=== PATIENT | female | born 1935 | race Caucasian/White ===

== ENCOUNTER 2016-05-12 13:51 | Inpatient (IN) | payer MEDICARE, OTHER ==
[2016-05-12] MEDS ORDERED: Ondansetron 4 MG Tab.DIS PO PRN (15:17)
[2016-05-12] MEDS ORDERED: Hydrocortisone 2.5% Crm 30 GM Tube TOP PRN (15:23)
[2016-05-12] MEDS ORDERED: Magnesium Hydroxide 400 MG/5 ML Susp 30 ML Cup PO PRN (15:33)
[2016-05-12] MEDS ORDERED: Lactulose Soln 10 GM/15 ML 30 ML UD Cup PO PRN (15:34)
[2016-05-12] MEDS: oxyCODONE 5 MG Tab PO PRN ×2 (15:59→20:18)
[2016-05-12] MEDS: Insulin Aspart 100 Units/ML 3 ML Pen SUBCUT SCH (17:14)
[2016-05-12] MEDS: Gabapentin 300 MG Cap PO SCH ×2 (17:15→20:17)
[2016-05-12] MEDS: Ciprofloxacin 500 MG Tab PO SCH (20:17)
[2016-05-12] MEDS: Heparin Sodium 5,000 Units/ML Vial SUBCUT SCH (21:11)
--- NOTE | 2016-05-12 22:22 | HP ---
CHIEF COMPLAINT: Back pain. HISTORY OF PRESENTING ILLNESS: Ms. Lian Barakat is an 80-year-old female with history of diabetes mellitus, hypertension, and gastroesophageal reflux disease. The patient also has history of chronic back pain. Her back pain got worse and she was evaluated with MRI which showed disk bulge at L3-L4 with associated spinal stenosis. She underwent surgery on 05/06/2016. Subsequently she was transferred to [facility] for continuation of physical therapy. The surgery was performed by Dr. Hearn. The patient at this time indicated she does have low back pain. Intensity is 5 on a scale of 0-10. No radiation. It is dull in nature. Analgesic does help. No nausea and no vomiting. No fever. No chills. The patient was found to have a urinary tract infection based on urinalysis performed at [facility]. REVIEW OF SYSTEMS: A 10-point review of system performed, no other pertinent findings except as noted above. PAST MEDICAL HISTORY: Dyslipidemia, diabetes mellitus, hypertension, gastroesophageal reflux disease. FAMILY HISTORY: Reviewed. Positive for breast cancer, diabetes, and stroke. SOCIAL HISTORY: Patient is . No tobacco use. CURRENT MEDICATIONS: Reviewed. She was on: 1. Glucophage. 2. Hydrochlorothiazide. 3. Prilosec. 4. Neurontin. 5. Atenolol. 6. Vitamin C. OBJECTIVE: General: The patient is alert and oriented to place, time, and person. Head: Atraumatic and normocephalic. Ear, Nose, and Throat: Unremarkable. Neck: Supple. Chest: Clear to auscultation. CVS: Regular rate and rhythm. No S3 or S4. Abdomen: Soft, nontender. Extremities: No pedal edema. No finger clubbing. Skin: No rash. Neuro: Symmetric strength. Vital Signs: Reviewed. LABORATORY DATA: Urinalysis suggested about 30 white cells per high-power field. MRI reviewed disk bulge at L3-L4 with spinal stenosis. ASSESSMENT: 1. Status post spinal surgery for L3-L4 disk bulge with associated spinal stenosis. 2. Spinal stenosis documented on MRI. Patient underwent surgery. 3. Diabetes mellitus type 2. The patient is on oral hypoglycemic agent. 4. Hypertension. Intermittent elevated. The patient is on oral antihypertensive as well. 5. Dyslipidemia, on medication. 6. Gastroesophageal reflux disease. Has been on proton pump inhibitor p.o. 7. Urinary tract infection. Urinalysis is suggestive. PLAN: 1. Admit patient to swing bed. 2. Consult physical therapy. 3. Monitor blood sugar before meals and at bedtime. 4. Start patient on atenolol. 5. Start Prilosec. 6. Start Glucophage. 7. Deep venous thrombosis prophylaxis with subcutaneous heparin. 8. Encourage increased activity. 9. Start the patient on oral ciprofloxacin. 10.Await results of urine cultures. Chart reviewed. Discussed with the nursing staff. [facility] /[id number]
[2016-05-13] MEDS: oxyCODONE 5 MG Tab PO PRN ×5 (00:57→19:52)
[2016-05-13] MEDS: Omeprazole 20 MG Cap.CR PO SCH (05:59)
[2016-05-13] MEDS: Heparin Sodium 5,000 Units/ML Vial SUBCUT SCH ×3 (05:59→21:54)
[2016-05-13] MEDS: Insulin Aspart 100 Units/ML 3 ML Pen SUBCUT SCH ×3 (08:03→17:15)
[2016-05-13] MEDS: Aspirin 81 MG Tab.EC PO SCH (08:04)
[2016-05-13] MEDS: Ciprofloxacin 500 MG Tab PO SCH ×2 (08:04→20:40)
[2016-05-13] MEDS: Acetaminophen 325 MG Tab PO PRN (08:05)
[2016-05-13] MEDS: Gabapentin 300 MG Cap PO SCH ×4 (08:05→20:41)
[2016-05-13] MEDS: Ascorbic Acid 500 MG Tab PO SCH (08:05)
[2016-05-13] MEDS: Hydrochlorothiazide 25 MG Tab PO SCH (08:06)
[2016-05-13] MEDS: Atenolol 50 MG Tab PO SCH (08:10)
[2016-05-13] MEDS: METFORMIN HCL 500 MG PO SCH (08:12)
[2016-05-13] MEDS: Loratadine 10 MG Tab PO SCH (08:15)
[2016-05-14] MEDS: oxyCODONE 5 MG Tab PO PRN ×6 (00:35→23:55)
[2016-05-14] MEDS: Heparin Sodium 5,000 Units/ML Vial SUBCUT SCH ×3 (05:32→22:21)
[2016-05-14] MEDS: Omeprazole 20 MG Cap.CR PO SCH (05:32)
[2016-05-14] MEDS: Insulin Aspart 100 Units/ML 3 ML Pen SUBCUT SCH ×3 (09:19→17:51)
[2016-05-14] MEDS: Loratadine 10 MG Tab PO SCH (09:21)
[2016-05-14] MEDS: Atenolol 50 MG Tab PO SCH (09:21)
[2016-05-14] MEDS: Gabapentin 300 MG Cap PO SCH ×4 (09:25→20:47)
[2016-05-14] MEDS: Hydrochlorothiazide 25 MG Tab PO SCH (09:25)
[2016-05-14] MEDS: Ciprofloxacin 500 MG Tab PO SCH ×2 (09:25→20:47)
[2016-05-14] MEDS: Aspirin 81 MG Tab.EC PO SCH (09:25)
[2016-05-14] MEDS: Ascorbic Acid 500 MG Tab PO SCH (09:25)
[2016-05-14] MEDS: METFORMIN HCL 500 MG PO SCH (09:27)
[2016-05-15] MEDS: oxyCODONE 5 MG Tab PO PRN ×4 (04:04→19:56)
[2016-05-15] MEDS: Heparin Sodium 5,000 Units/ML Vial SUBCUT SCH ×3 (05:45→22:06)
[2016-05-15] MEDS: Omeprazole 20 MG Cap.CR PO SCH (05:45)
[2016-05-15] MEDS: Insulin Aspart 100 Units/ML 3 ML Pen SUBCUT SCH ×3 (09:52→17:23)
[2016-05-15] MEDS: Gabapentin 300 MG Cap PO SCH ×4 (10:06→20:30)
[2016-05-15] MEDS: Ciprofloxacin 500 MG Tab PO SCH ×2 (10:07→20:30)
[2016-05-15] MEDS: Hydrochlorothiazide 25 MG Tab PO SCH (10:08)
[2016-05-15] MEDS: Atenolol 50 MG Tab PO SCH (10:08)
[2016-05-15] MEDS: Aspirin 81 MG Tab.EC PO SCH (10:08)
[2016-05-15] MEDS: Ascorbic Acid 500 MG Tab PO SCH (10:08)
[2016-05-15] MEDS: METFORMIN HCL 500 MG PO SCH (10:15)
[2016-05-15] MEDS: Loratadine 10 MG Tab PO SCH (10:16)
[2016-05-16] MEDS: oxyCODONE 5 MG Tab PO PRN ×5 (01:29→20:09)
[2016-05-16] MEDS: Acetaminophen 325 MG Tab PO PRN (03:18)
[2016-05-16] MEDS: Omeprazole 20 MG Cap.CR PO SCH (05:32)
[2016-05-16] MEDS: Heparin Sodium 5,000 Units/ML Vial SUBCUT SCH ×3 (05:32→21:20)
[2016-05-16] MEDS: Insulin Aspart 100 Units/ML 3 ML Pen SUBCUT SCH ×3 (08:03→16:57)
[2016-05-16] MEDS: Ciprofloxacin 500 MG Tab PO SCH ×2 (08:46→21:21)
[2016-05-16] MEDS: Gabapentin 300 MG Cap PO SCH ×4 (08:47→21:22)
[2016-05-16] MEDS: Aspirin 81 MG Tab.EC PO SCH (08:47)
[2016-05-16] MEDS: Ascorbic Acid 500 MG Tab PO SCH (08:47)
[2016-05-16] MEDS: Hydrochlorothiazide 25 MG Tab PO SCH (08:48)
[2016-05-16] MEDS: Loratadine 10 MG Tab PO SCH (08:48)
[2016-05-16] MEDS: Atenolol 50 MG Tab PO SCH (08:48)
[2016-05-16] MEDS: METFORMIN HCL 500 MG PO SCH (08:49)
[2016-05-16] MEDS: Lidocaine 5% 700 MG Patch TOP SCH (10:57)
[2016-05-17] MEDS: oxyCODONE 5 MG Tab PO PRN ×5 (00:45→20:06)
[2016-05-17] MEDS: Acetaminophen 325 MG Tab PO PRN ×3 (00:54→21:27)
[2016-05-17] MEDS: Heparin Sodium 5,000 Units/ML Vial SUBCUT SCH ×3 (05:36→21:22)
[2016-05-17] MEDS: Omeprazole 20 MG Cap.CR PO SCH (05:37)
[2016-05-17] MEDS: Insulin Aspart 100 Units/ML 3 ML Pen SUBCUT SCH ×3 (08:28→17:22)
[2016-05-17] MEDS: Ascorbic Acid 500 MG Tab PO SCH (09:34)
[2016-05-17] MEDS: Loratadine 10 MG Tab PO SCH (09:34)
[2016-05-17] MEDS: Gabapentin 300 MG Cap PO SCH ×4 (09:34→21:20)
[2016-05-17] MEDS: Aspirin 81 MG Tab.EC PO SCH (09:35)
[2016-05-17] MEDS: Hydrochlorothiazide 25 MG Tab PO SCH (09:35)
[2016-05-17] MEDS: Atenolol 50 MG Tab PO SCH (09:35)
[2016-05-17] MEDS: Ciprofloxacin 500 MG Tab PO SCH ×2 (09:35→21:20)
[2016-05-17] MEDS: METFORMIN HCL 500 MG PO SCH (09:44)
[2016-05-17] MEDS: Lidocaine 5% 700 MG Patch TOP SCH (10:50)
[2016-05-18] MEDS: oxyCODONE 5 MG Tab PO PRN ×6 (00:20→21:02)
[2016-05-18] MEDS: Acetaminophen 325 MG Tab PO PRN ×4 (02:07→19:48)
[2016-05-18] MEDS: Heparin Sodium 5,000 Units/ML Vial SUBCUT SCH ×3 (05:42→21:48)
[2016-05-18] MEDS: Omeprazole 20 MG Cap.CR PO SCH (05:42)
[2016-05-18] MEDS: Insulin Aspart 100 Units/ML 3 ML Pen SUBCUT SCH ×3 (08:18→17:16)
[2016-05-18] MEDS: Ascorbic Acid 500 MG Tab PO SCH (08:19)
[2016-05-18] MEDS: Aspirin 81 MG Tab.EC PO SCH (08:19)
[2016-05-18] MEDS: Hydrochlorothiazide 25 MG Tab PO SCH (08:19)
[2016-05-18] MEDS: Ciprofloxacin 500 MG Tab PO SCH (08:19)
[2016-05-18] MEDS: Loratadine 10 MG Tab PO SCH (08:19)
[2016-05-18] MEDS: Atenolol 50 MG Tab PO SCH (08:20)
[2016-05-18] MEDS: Lidocaine 5% 700 MG Patch TOP SCH (08:21)
[2016-05-18] MEDS: Gabapentin 300 MG Cap PO SCH ×4 (08:22→21:04)
[2016-05-18] MEDS: METFORMIN HCL 500 MG PO SCH (08:25)
--- NOTE | 2016-05-18 10:52 | PN ---
DATE: 05/18/2016 SUBJECTIVE: Ms. Olivares is an 80-year-old female, who underwent spinal surgery in [place]. She is in [facility] bed for physical and occupational therapy. Today, the patient indicated that she still has low back pain. This happens mostly at night. The oxycodone does help. She thinks that her bed is the problem. No nausea. No vomiting. Able to get up with physical therapy. PAST MEDICAL HISTORY: 1. Dyslipidemia. 2. Diabetes mellitus. 3. Hypertension. REVIEW OF SYSTEMS: Constitutional, cardiac, respiratory, gastrointestinal, genitourinary system were reviewed. No other pertinent findings except as noted above. OBJECTIVE: General: The patient is alert, oriented to place, time, and person. Head: Atraumatic and normocephalic. Ear, Nose, and throat: Unremarkable. Chest: Clear to auscultation. Abdomen: Soft, nontender. Extremities: No pedal edema. No finger clubbing. Skin: No rash. Neuro: Moves all extremities. ASSESSMENT: 1. Status post spinal surgery at L3-L4 vertebra. The patient had disc bulge at this level with associated spinal stenosis. 2. Diabetes mellitus, reasonable control. She is on oral hypoglycemic agent. 3. Hypertension. Her blood pressures have been mostly within acceptable limits. Diastolic tends to be on the low side. 4. Dyslipidemia, on medication. 5. Gastroesophageal reflux disease. The patient is on proton-pump inhibitor. 6. Probable urinary tract infection. Urinalysis is suggestive. PLAN: 1. Discontinue ciprofloxacin. The patient has had antibiotics for 6 days for urinary tract infection. 2. Monitor vital signs. 3. I will keep the patient on both atenolol and hydrochlorothiazide, but if diastolic continues to be low, get rid of one of them. For now, monitor closely. 4. Continue physical and occupational therapy. [facility] /[id number]
[2016-05-19] MEDS: oxyCODONE 5 MG Tab PO PRN ×6 (01:19→23:51)
[2016-05-19] MEDS: Acetaminophen 325 MG Tab PO PRN ×3 (03:22→21:47)
[2016-05-19] MEDS: Omeprazole 20 MG Cap.CR PO SCH (05:41)
[2016-05-19] MEDS: Heparin Sodium 5,000 Units/ML Vial SUBCUT SCH ×3 (05:43→21:52)
[2016-05-19] MEDS: Insulin Aspart 100 Units/ML 3 ML Pen SUBCUT SCH ×3 (08:36→17:45)
[2016-05-19] MEDS: Aspirin 81 MG Tab.EC PO SCH (08:38)
[2016-05-19] MEDS: Hydrochlorothiazide 25 MG Tab PO SCH (08:39)
[2016-05-19] MEDS: Gabapentin 300 MG Cap PO SCH ×4 (08:39→21:46)
[2016-05-19] MEDS: Ascorbic Acid 500 MG Tab PO SCH (08:39)
[2016-05-19] MEDS: Lidocaine 5% 700 MG Patch TOP SCH (08:39)
[2016-05-19] MEDS: Loratadine 10 MG Tab PO SCH (08:39)
[2016-05-19] MEDS: METFORMIN HCL 500 MG PO SCH (08:45)
[2016-05-19] MEDS: Atenolol 50 MG Tab PO SCH (10:13)
--- NOTE | 2016-05-19 20:10 | PN ---
DATE: 05/19/2016 Ms. Barakat is an 80-year-old lady, who is currently in swing bed. Approximately 2 weeks ago she had spinal surgery at [facility] for spinal stenosis. She is doing well. She voices no concerns or complaints. Denies any chest pain or shortness of breath. No abdominal pain. She is sleeping well, eating well, moving her bowels. She denied any calf pain. She did question whether the carline in her incision could be removed today. Review of her clinical data shows that she is taking in adequate fluids. She is voiding and has moving her bowels. She is tolerating her meals. Vital Signs: Stable. She has been afebrile. HEENT: Unremarkable. Chest: Clear. Heart: Regular. Abdomen: Benign. Extremities: Showed the calves to be soft and nontender. There are palpable peripheral pulses. Back: She has a well-healed midline scar overlying the lumbar spine. Nursing staff removed 28 carline from the incision and the area was cleaned with normal saline and covered with a dry dressing. No other changes were made in her care today. [facility] /[id number] [place]
[2016-05-20] MEDS: oxyCODONE 5 MG Tab PO PRN ×5 (03:43→21:53)
[2016-05-20] MEDS: Omeprazole 20 MG Cap.CR PO SCH (05:41)
[2016-05-20] MEDS: Heparin Sodium 5,000 Units/ML Vial SUBCUT SCH ×3 (05:43→21:51)
[2016-05-20] MEDS: Insulin Aspart 100 Units/ML 3 ML Pen SUBCUT SCH ×3 (08:11→16:58)
[2016-05-20] MEDS: Ascorbic Acid 500 MG Tab PO SCH (08:12)
[2016-05-20] MEDS: Loratadine 10 MG Tab PO SCH (08:13)
[2016-05-20] MEDS: Atenolol 50 MG Tab PO SCH (08:13)
[2016-05-20] MEDS: Hydrochlorothiazide 25 MG Tab PO SCH (08:13)
[2016-05-20] MEDS: Aspirin 81 MG Tab.EC PO SCH (08:14)
[2016-05-20] MEDS: Gabapentin 300 MG Cap PO SCH ×4 (08:14→21:51)
[2016-05-20] MEDS: Lidocaine 5% 700 MG Patch TOP SCH (08:17)
[2016-05-20] MEDS: METFORMIN HCL 500 MG PO SCH (08:19)
[2016-05-20] MEDS: Acetaminophen 325 MG Tab PO PRN ×3 (10:36→23:07)
[2016-05-21] MEDS: oxyCODONE 5 MG Tab PO PRN ×6 (02:12→22:46)
[2016-05-21] MEDS: Acetaminophen 325 MG Tab PO PRN ×5 (04:25→21:36)
[2016-05-21] MEDS: Omeprazole 20 MG Cap.CR PO SCH (06:55)
[2016-05-21] MEDS: Heparin Sodium 5,000 Units/ML Vial SUBCUT SCH ×3 (06:56→21:35)
[2016-05-21] MEDS: Insulin Aspart 100 Units/ML 3 ML Pen SUBCUT SCH ×3 (08:05→17:04)
[2016-05-21] MEDS: Aspirin 81 MG Tab.EC PO SCH (08:46)
[2016-05-21] MEDS: METFORMIN HCL 500 MG PO SCH (08:46)
[2016-05-21] MEDS: Hydrochlorothiazide 25 MG Tab PO SCH (08:47)
[2016-05-21] MEDS: Atenolol 50 MG Tab PO SCH (08:47)
[2016-05-21] MEDS: Loratadine 10 MG Tab PO SCH (08:47)
[2016-05-21] MEDS: Ascorbic Acid 500 MG Tab PO SCH (08:48)
[2016-05-21] MEDS: Gabapentin 300 MG Cap PO SCH ×4 (08:48→21:36)
[2016-05-21] MEDS: Lidocaine 5% 700 MG Patch TOP SCH (08:50)
[2016-05-22] MEDS: Acetaminophen 325 MG Tab PO PRN ×6 (01:51→23:59)
[2016-05-22] MEDS: oxyCODONE 5 MG Tab PO PRN ×5 (04:44→21:03)
[2016-05-22] MEDS: Omeprazole 20 MG Cap.CR PO SCH (05:10)
[2016-05-22] MEDS: Heparin Sodium 5,000 Units/ML Vial SUBCUT SCH ×3 (05:10→21:09)
[2016-05-22] MEDS: Insulin Aspart 100 Units/ML 3 ML Pen SUBCUT SCH ×3 (08:02→17:11)
[2016-05-22] MEDS: Ascorbic Acid 500 MG Tab PO SCH (08:50)
[2016-05-22] MEDS: Atenolol 50 MG Tab PO SCH (08:51)
[2016-05-22] MEDS: METFORMIN HCL 500 MG PO SCH (08:51)
[2016-05-22] MEDS: Gabapentin 300 MG Cap PO SCH ×4 (08:52→20:12)
[2016-05-22] MEDS: Hydrochlorothiazide 25 MG Tab PO SCH (08:52)
[2016-05-22] MEDS: Loratadine 10 MG Tab PO SCH (08:52)
[2016-05-22] MEDS: Lidocaine 5% 700 MG Patch TOP SCH (08:53)
[2016-05-22] MEDS: Aspirin 81 MG Tab.EC PO SCH (08:53)
[2016-05-23] MEDS: oxyCODONE 5 MG Tab PO PRN ×5 (01:25→19:31)
[2016-05-23] MEDS: Acetaminophen 325 MG Tab PO PRN ×4 (04:13→22:27)
[2016-05-23] MEDS: Omeprazole 20 MG Cap.CR PO SCH (05:27)
[2016-05-23] MEDS: Heparin Sodium 5,000 Units/ML Vial SUBCUT SCH ×3 (05:28→21:37)
[2016-05-23] MEDS: Insulin Aspart 100 Units/ML 3 ML Pen SUBCUT SCH ×3 (07:48→17:15)
[2016-05-23] MEDS: METFORMIN HCL 500 MG PO SCH (08:47)
[2016-05-23] MEDS: Loratadine 10 MG Tab PO SCH (08:48)
[2016-05-23] MEDS: Gabapentin 300 MG Cap PO SCH ×4 (08:48→21:39)
[2016-05-23] MEDS: Ascorbic Acid 500 MG Tab PO SCH (08:48)
[2016-05-23] MEDS: Hydrochlorothiazide 25 MG Tab PO SCH (08:48)
[2016-05-23] MEDS: Aspirin 81 MG Tab.EC PO SCH (08:49)
[2016-05-23] MEDS: Atenolol 50 MG Tab PO SCH (08:49)
[2016-05-23] MEDS: Lidocaine 5% 700 MG Patch TOP SCH (11:28)
[2016-05-24] MEDS: oxyCODONE 5 MG Tab PO PRN ×5 (00:34→20:18)
[2016-05-24] MEDS: Heparin Sodium 5,000 Units/ML Vial SUBCUT SCH ×3 (05:55→21:10)
[2016-05-24] MEDS: Omeprazole 20 MG Cap.CR PO SCH (05:56)
[2016-05-24] MEDS: Insulin Aspart 100 Units/ML 3 ML Pen SUBCUT SCH ×3 (08:07→18:22)
[2016-05-24] MEDS: Gabapentin 300 MG Cap PO SCH ×4 (08:57→20:18)
[2016-05-24] MEDS: Atenolol 50 MG Tab PO SCH (08:57)
[2016-05-24] MEDS: Hydrochlorothiazide 25 MG Tab PO SCH (08:57)
[2016-05-24] MEDS: Ascorbic Acid 500 MG Tab PO SCH (08:57)
[2016-05-24] MEDS: Aspirin 81 MG Tab.EC PO SCH (08:58)
[2016-05-24] MEDS: METFORMIN HCL 500 MG PO SCH (08:58)
[2016-05-24] MEDS: Loratadine 10 MG Tab PO SCH (08:58)
[2016-05-24] MEDS: Lidocaine 5% 700 MG Patch TOP SCH (08:58)
[2016-05-24] MEDS: Acetaminophen 325 MG Tab PO PRN (09:23)
[2016-05-25] MEDS: oxyCODONE 5 MG Tab PO PRN ×4 (01:56→20:36)
[2016-05-25] MEDS: Omeprazole 20 MG Cap.CR PO SCH (05:18)
[2016-05-25] MEDS: Heparin Sodium 5,000 Units/ML Vial SUBCUT SCH ×3 (05:19→21:58)
[2016-05-25] MEDS: Loratadine 10 MG Tab PO SCH (08:19)
[2016-05-25] MEDS: Gabapentin 300 MG Cap PO SCH ×4 (08:19→20:35)
[2016-05-25] MEDS: Hydrochlorothiazide 25 MG Tab PO SCH (08:19)
[2016-05-25] MEDS: Lidocaine 5% 700 MG Patch TOP SCH (08:19)
[2016-05-25] MEDS: Atenolol 50 MG Tab PO SCH (08:20)
[2016-05-25] MEDS: Ascorbic Acid 500 MG Tab PO SCH (08:20)
[2016-05-25] MEDS: Aspirin 81 MG Tab.EC PO SCH (08:21)
[2016-05-25] MEDS: METFORMIN HCL 500 MG PO SCH (08:21)
[2016-05-25] MEDS: Insulin Aspart 100 Units/ML 3 ML Pen SUBCUT SCH ×3 (08:21→17:06)
[2016-05-26] MEDS: oxyCODONE 5 MG Tab PO PRN ×4 (02:08→19:37)
[2016-05-26] MEDS: Heparin Sodium 5,000 Units/ML Vial SUBCUT SCH ×3 (05:50→22:26)
[2016-05-26] MEDS: Omeprazole 20 MG Cap.CR PO SCH (05:51)
[2016-05-26] MEDS: Ascorbic Acid 500 MG Tab PO SCH (08:50)
[2016-05-26] MEDS: Gabapentin 300 MG Cap PO SCH ×4 (08:51→20:58)
[2016-05-26] MEDS: Loratadine 10 MG Tab PO SCH (08:51)
[2016-05-26] MEDS: Aspirin 81 MG Tab.EC PO SCH (08:53)
[2016-05-26] MEDS: Hydrochlorothiazide 25 MG Tab PO SCH (08:54)
[2016-05-26] MEDS: METFORMIN HCL 500 MG PO SCH (08:55)
[2016-05-26] MEDS: Insulin Aspart 100 Units/ML 3 ML Pen SUBCUT SCH ×3 (08:59→17:29)
[2016-05-26] MEDS: Atenolol 50 MG Tab PO SCH (09:11)
[2016-05-26] MEDS: Acetaminophen 325 MG Tab PO PRN ×2 (09:17→14:30)
[2016-05-26] MEDS: Lidocaine 5% 700 MG Patch TOP SCH (10:42)
[2016-05-27] MEDS: Acetaminophen 325 MG Tab PO PRN ×2 (01:47→07:55)
[2016-05-27] MEDS: oxyCODONE 5 MG Tab PO PRN ×2 (04:18→10:56)
[2016-05-27] MEDS: Heparin Sodium 5,000 Units/ML Vial SUBCUT SCH ×2 (05:17→14:54)
[2016-05-27] MEDS: Omeprazole 20 MG Cap.CR PO SCH (06:14)
[2016-05-27] MEDS: Insulin Aspart 100 Units/ML 3 ML Pen SUBCUT SCH ×2 (08:09→12:18)
--- NOTE | 2016-05-27 10:17 | PCM.DCSUM1 ---
Discharge Summary - Hospital Course Free Text/Narrative:: discharge diagnoses: status post spinal surgery for L3-L4 disc bulge with spinal stenosis Spinal stenosis, status post surgical repair Diabetes mellitus type 2 in obese patient Essential hypertension Dyslipidemia GERD urinary tract infection, resolved Hospital course: 80-year-old female presented for physical therapy to swing bed after having spinal surgery on 05/06/16. Patient has been participating well with physical therapy and making progress. She had an uneventful stay. She was suspected to have urinary tract infection which was treated with ciprofloxacin. Her pain was controlled with oxycodone as needed. Patient denies fever, chills, nausea, vomiting, chest pain, shortness breath, lower extremities weakness/numbness/ tingling, difficulty urinating or defecating, or any other symptoms. her blood glucose was controlled and she required minimal insulin sporadically. She was discharged to followup with her primary care provider and neurosurgeon in 1-2 weeks. review of system: 10 point review of systems is otherwise negative except as mentioned above - Discharge Data Discharge Date: 05/27/16 Discharge Disposition: Home, Self-Care 01 Condition: Fair - Patient Summary/Data Consults: Consultations 05/12/16 15:17 OT Evaluation and Treatment [CONS] Routine PT Evaluation and Treatment [CONS] Routine - Patient Instructions Diet: Diabetic Diet Showering/Bathing: June Shower Wound/Incision Care: Keep Operative Site/Wound Site Clean and Dry Notify Provider of: Fever, Drainage - Discharge Plan Prescriptions/Med Rec: Acetaminophen with Codeine [Tylenol with Codeine #3 Tablet] 1 - 2 each PO Q6H PRN #45 tablet PRN Reason: Pain Home Medications: Home Meds Ascorbic Acid [C-1000] 1,000 mg PO DAILY 05/12/16 [History] Aspirin [Adult Low Dose Aspirin EC] 81 mg PO DAILY 05/12/16 [History] Atenolol 50 mg PO DAILY 05/12/16 [History] Gabapentin [Neurontin] 300 mg PO QID 05/12/16 [History] Hydrochlorothiazide 25 mg PO DAILY 05/12/16 [History] Hydrocortisone [Anusol-HC] 30 gm RC BID PRN 05/12/16 [History] Loratadine [Claritin] 10 mg PO DAILY 05/12/16 [History] Omeprazole 40 mg PO ACBREAKFAST 05/12/16 [History] metFORMIN HCl [Metformin HCl ER] 500 mg PO DAILY 05/12/16 [History] Acetaminophen with Codeine [Tylenol with Codeine #3 Tablet] 1 - 2 each PO Q6H PRN #45 tablet 05/27/16 [Rx] - Patient Data Vitals - Most Recent: Last Vital Signs Temp 36.1 C 05/27/16 07:00 Pulse 54 L 05/27/16 07:00 Resp 20 05/27/16 07:00 BP 131/56 L 05/27/16 07:00 Pulse Ox 100 05/27/16 07:00 Weight - Most Recent: 103.419 kg I&O - Last 24 hours: Intake & Output 05/26/16 05/27/16 05/27/16 22:59 06:59 14:59 Intake Total 100 Balance 100 Lab Results - Last 24 hrs: Laboratory Results - last 24 hr 05/26/16 05/26/16 05/27/16 Range/Units 11:13 17:07 07:23 POC Glucose 199 H 172 H 168 H (83-110) mg/dl Med Orders - Current: Current Medications Acetaminophen (Tylenol) 650 mg PO Q4H PRN PRN Reason: Pain (Mild 1-3)/fever Last Admin: 05/27/16 07:55 Dose: 650 mg Ascorbic Acid (Vitamin C) 1,000 mg PO DAILY [facility] Last Admin: 05/26/16 08:50 Dose: 1,000 mg Aspirin (Halfprin) 81 mg PO DAILY [facility] Last Admin: 05/26/16 08:53 Dose: 81 mg Atenolol (Tenormin) 50 mg PO DAILY [facility] Last Admin: 05/26/16 09:11 Dose: 50 mg Gabapentin (Neurontin) 300 mg PO QID [facility] Last Admin: 05/26/16 20:58 Dose: 300 mg Heparin Sodium (Porcine) (Heparin Sodium) 5,000 units SUBCUT Q8HR [facility] Last Admin: 05/27/16 05:17 Dose: Not Given Hydrochlorothiazide (Hydrochlorothiazide) 25 mg PO DAILY [facility] Last Admin: 05/26/16 08:54 Dose: 25 mg Hydrocortisone (Hydrocortisone 2.5% Crm) 0 gm TOP BID PRN PRN Reason: Hemorrhoids Insulin Aspart (Novolog) 0 unit SUBCUT TIDAC [facility] PRN Reason: Protocol Last Admin: 05/27/16 08:09 Dose: 1 units Lactulose (Cephulac) 20 gm PO BID PRN PRN Reason: constipation Lidocaine (Lidoderm 5%) 700 mg TOP Q24H [facility] Last Admin: 05/26/16 10:42 Dose: 700 mg Loratadine (Claritin) 10 mg PO DAILY [facility] Last Admin: 05/26/16 08:51 Dose: 10 mg Magnesium Hydroxide (Milk Of Magnesia) 30 ml PO Q8H PRN PRN Reason: constipation Miscellaneous Information (Remove Patch) 1 ea TRDERM BEDTIME [facility] Last Admin: 05/26/16 20:58 Dose: 1 ea Metformin Hcl [ Metformin Hcl Er] 500 MgPt Own 500 mg PO DAILY [facility] Last Admin: 05/26/16 08:55 Dose: 500 mg Omeprazole (Omeprazole) 40 mg PO ACBREAKFAST [facility] Last Admin: 05/27/16 06:14 Dose: 40 mg Ondansetron HCl (Zofran Odt) 4 mg PO Q6H PRN PRN Reason: nausea, able to take PO Oxycodone HCl (Oxycodone) 5 mg PO Q6H PRN PRN Reason: Pain (moderate 4-6) Last Admin: 05/27/16 04:18 Dose: 5 mg Senna/Docusate Sodium (Senna Plus) 2 tab PO BID [facility] Last Admin: 05/26/16 20:58 Dose: Not Given Discontinued Medications Ciprofloxacin (Ciprofloxacin Hcl) 500 mg PO BID [facility] Last Admin: 05/18/16 08:19 Dose: 500 mg Oxycodone HCl (Oxycodone) 5 mg PO Q4H PRN PRN Reason: Pain (moderate 4-6) Last Admin: 05/26/16 06:18 Dose: 5 mg - Exam General: Reports: alert, oriented, cooperative. Denies: no acute distress, mild distress, moderate distress, severe distress, sedated, lethargic, obtunded HEENT: Reports: Pupils equal, Pupils reactive, EOMI, Mucous membr. moist/pink Neck: Reports: supple, trachea midline, no JVD Lungs: Reports: Clear to auscultation, Normal respiratory effort. Denies: Decreased breath sounds, Crackles, Rales, Rhonchi, Rub, Stridor, Wheezing Cardiovascular: Reports: Regular Rate, Regular Rhythm Abdomen: Reports: bowel sounds present, soft, no tenderness, no distension. Denies: rigidity, rebound, guarding, tenderness, distension, abnormal bowel sounds, CVA tenderness, organomegaly (Female) Exam: Deferred Rectal (Female) Exam: Deferred Back Exam: Reports: normal inspection, full range of motion. Denies: CVA tenderness (L), CVA tenderness (R) Extremities: Reports: no edema, normal pulses, no tenderness/swelling, no clubbing, no cyanosis, no calf tenderness Skin: Reports: warm, dry, intact Wound/Incisions: Reports: healing well Neurological: Reports: no new focal deficit Psy/Mental Status: Reports: alert, normal affect, normal mood. Denies: suicidal ideation, homicidal ideation, hallucinations *Q Meaningful Use (DIS) - VTE *Q VTE Criteria *Q: - Stroke *Q Stroke Criteria *Q: - AMI *Q AMI Criteria *Q:
[2016-05-27] MEDS: Lidocaine 5% 700 MG Patch TOP SCH (10:55)
[2016-05-27] MEDS: Hydrochlorothiazide 25 MG Tab PO SCH (10:55)
[2016-05-27] MEDS: Ascorbic Acid 500 MG Tab PO SCH (10:55)
[2016-05-27] MEDS: Gabapentin 300 MG Cap PO SCH ×2 (10:55→12:37)
[2016-05-27] MEDS: Loratadine 10 MG Tab PO SCH (10:55)
[2016-05-27] MEDS: Atenolol 50 MG Tab PO SCH (10:56)
[2016-05-27] MEDS: Aspirin 81 MG Tab.EC PO SCH (10:56)
[2016-05-27 11:03] VITALS: BP 116/69
[2016-05-27] MEDS: METFORMIN HCL 500 MG PO SCH (11:03)
== END 2016-05-27 12:50 | disposition home or self-care (01) | DRG 552 ==
LOC: DL.MS 14:03
PROVIDERS: ADMIT Hospitalist; ATTEND Hospitalist
DX: M48.06 Spinal stenosis, lumbar region (principal); N39.0 Urinary tract infection, site not specified; G89.18 Other acute postprocedural pain; M54.5 Low back pain; E11.9 Type 2 diabetes mellitus without complications; Z98.1 Arthrodesis status; Z79.84 Long term (current) use of oral hypoglycemic drugs; I10 Essential (primary) hypertension; K21.9 Gastro-esophageal reflux disease without esophagitis; E66.9 Obesity, unspecified; Z68.39 Body mass index [BMI] 39.0-39.9, adult; E78.5 Hyperlipidemia, unspecified; Z79.82 Long term (current) use of aspirin; Z79.899 Other long term (current) drug therapy
CPT/HCPCS: 82962; 97110-GO; 97110-GP; 97116-GP; 97162-GP; 97165-GO; 97530-GO; 97535-GO; A9270-GY; J1644; J1815-GY

== ENCOUNTER 2018-05-31 08:31 | Observation (INO) | payer MEDICARE, OTHER ==
--- NOTE | 2018-05-31 08:50 | EDM.PDOC ---
ED HPI GENERAL MEDICAL PROBLEM - General Chief Complaint: General Stated Complaint: Weakness, vomiting, diarrhea, chills Time Seen by Provider: 05/31/18 08:50 Source of Information: Reports: Patient, EMS, Old Records, RN, RN Notes Reviewed History Limitations: Reports: No Limitations - History of Present Illness INITIAL COMMENTS - FREE TEXT/NARRATIVE: Pt presents to ER from home by [facility] with c/o vomiting, diarrhea, and weakness. This morning pt woke and vomited several times, and had diarrhea after which she became weak and laid of on the floor. She was incontinent of stool while on the floor. She was too weak to get herself up so she called the ambulance. Pt states she became ill about 3 weeks ago with what she thought was the "stomach flu" during which time she had nausea, vomiting, and diarrhea with chills and mild abdominal pain. She was better for about 3 days, then the Sx's returned this morning. Pt denies fevers, bloody or dark stool, or abdominal distention. She admits to chills this morning. She also thinks she may have a urinary tract infection. Duration: Getting Worse, Waxing/Waning Location: Reports: Abdomen, Generalized Quality: Reports: Ache, Other (Cramping) Severity: Moderate Improves with: Reports: None Worsens with: Reports: None Associated Symptoms: Reports: No Other Symptoms - Related Data Allergies Allergy/AdvReac Type Severity Reaction Status Date / Time meperidine Allergy Unknown Nausea and Verified 05/31/18 08:47 Vomiting morphine Allergy Unknown Nausea and Verified 05/31/18 08:47 Vomiting rosuvastatin Allergy Unknown Stomach Verified 05/31/18 08:47 Upset simvastatin Allergy Unknown Abdominal Verified 05/31/18 08:47 Pain Home Meds: Home Meds Ascorbic Acid [C-1000] 1,000 mg PO DAILY 05/12/16 [History] Aspirin [Adult Low Dose Aspirin EC] 81 mg PO DAILY 05/12/16 [History] Atenolol 50 mg PO DAILY 05/12/16 [History] Gabapentin [Neurontin] 300 mg PO QID 05/12/16 [History] Hydrochlorothiazide 25 mg PO DAILY 05/12/16 [History] Hydrocortisone [Anusol-HC] 30 gm RC BID PRN 05/12/16 [History] Loratadine [Claritin] 10 mg PO DAILY 05/12/16 [History] Omeprazole 40 mg PO ACBREAKFAST 05/12/16 [History] metFORMIN HCl [Metformin HCl ER] 500 mg PO DAILY 05/12/16 [History] Acetaminophen with Codeine [Tylenol with Codeine #3 Tablet] 1 - 2 each PO Q6H PRN #45 tablet 05/27/16 [Rx] Past Medical History HEENT History: Reports: Cataract Cardiovascular History: Reports: Hypertension Respiratory History: Reports: None Gastrointestinal History: Reports: Hemorrhoids Genitourinary History: Reports: Urinary Incontinence, UTI, Recurrent [employer] History: Reports: Endometriosis Musculoskeletal History: Reports: Back Pain, Chronic Neurological History: Reports: None Endocrine/Metabolic History: Reports: Diabetes, Type II, Obesity/BMI 30+ - Past Surgical History HEENT Surgical History: Reports: Cataract Surgery Cardiovascular Surgical History: Reports: None GI Surgical History: Reports: Colonoscopy Neurological Surgical History: Reports: Spinal Fusion, Other (See Below) Musculoskeletal Surgical History: Reports: Knee Replacement Social & Family History - Family History Family Medical History: Noncontributory - Caffeine Use Caffeine Use: Reports: Coffee - Living Situation & Occupation Living situation: Reports: , with Spouse Occupation: Retired ED ROS GENERAL - Review of Systems Review Of Systems: ROS reveals no pertinent complaints other than HPI. ED EXAM, GENERAL - Physical Exam Exam: See Below Exam Limited By: No Limitations General Appearance: Alert, No Apparent Distress, Obese Eye Exam: Bilateral Eye: Normal Inspection (No scleral icterus) Nose: Normal Inspection, Normal Mucosa, No Blood Throat/Mouth: Normal Lips, Normal Oropharynx, Normal Voice, No Airway Compromise , Other (Dry oral membranes) Head: Atraumatic, Normocephalic Neck: Normal Inspection, Supple, Non-Tender, Full Range of Motion Respiratory/Chest: No Respiratory Distress, Lungs Clear, Normal Breath Sounds, No Accessory Muscle Use, Chest Non-Tender Cardiovascular: Regular Rate, Rhythm, No Edema GI/Abdominal: Normal Bowel Sounds, Soft, No Distention, Tender (generalized). No: Guarding, Rigid, Rebound (Female) Exam: Deferred Rectal (Female) Exam: Deferred Back Exam: Normal Inspection, Full Range of Motion. No: CVA Tenderness (L), CVA Tenderness (R) Extremities: Normal Inspection, Normal Range of Motion, Non-Tender, No Pedal Edema Neurological: Alert, Oriented, CN II-XII Intact, Normal Cognition, No Motor/ Sensory Deficits Psychiatric: Normal Affect, Normal Mood Skin Exam: Warm, Dry, Intact, Normal Color, No Rash EKG INTERPRETATION EKG Date: 05/31/18 Time: 09:06 Rhythm: Other (SR) [place]: LAD-Left [place] Deviation P-Wave: Present QRS: Wide (borderline AV conduction delay) ST-T: Normal QT: Normal Comparison: NA - No Prior EKG Course - Vital Signs Last Recorded V/S: Last Vital Signs Temp 36.8 C 05/31/18 08:48 Pulse 96 05/31/18 08:48 Resp 16 05/31/18 08:48 BP 134/55 L 05/31/18 08:48 Pulse Ox 95 05/31/18 08:48 - Orders/Labs/Meds Orders: Active Orders 24 hr Category Date Time Status Blood Glucose Check, Bedside [RC] ONETIME Care 05/31/18 08:51 Active EKG 12 Lead [EKG Documentation Completion] [RC] STAT Care 05/31/18 08:50 Active Peripheral IV Care [RC] . DIRECTED Care 05/31/18 08:51 Active CULTURE BLOOD [BC] Stat Lab 05/31/18 09:05 Results CULTURE BLOOD [BC] Stat Lab 05/31/18 09:13 Results CULTURE URINE [] Stat Lab 05/31/18 08:51 Received Levofloxacin/Dextrose 5%-Water [Levaquin in D5W 500 MG/ Med 05/31/18 11:59 Active 100 ML] 500 mg Premix Bag 1 bag IV ONETIME Sodium Chloride 0.9% [Normal Saline] 1,000 ml Med 05/31/18 09:34 Active IV .BOLUS Sodium Chloride 0.9% [Saline Flush] Med 05/31/18 08:51 Active 10 ml FLUSH ASDIRECTED PRN Blood Culture x2 Reflex Set [OM.PC] Stat Oth 05/31/18 08:50 Ordered Peripheral IV Insertion Adult [OM.PC] Stat Oth 05/31/18 08:50 Ordered Medication Orders Sodium Chloride (Normal Saline) 1,000 mls @ 250 mls/hr IV .BOLUS ONE Stop: 05/31/18 13:33 Last Admin: 05/31/18 09:46 Dose: 250 mls/hr Levofloxacin/Dextrose 500 mg/ (Premix) 100 mls @ 100 mls/hr IV ONETIME ONE Stop: 05/31/18 12:58 Last Admin: 05/31/18 12:21 Dose: 100 mls/hr Sodium Chloride (Saline Flush) 10 ml FLUSH ASDIRECTED PRN PRN Reason: Keep Vein Open Last Admin: 05/31/18 09:46 Dose: 10 ml Labs: Laboratory Tests 05/31/18 05/31/18 05/31/18 Range/Units 08:51 09:13 09:13 WBC 8.2 (5.0-10.0) 10^3/uL RBC 4.47 (4.2-5.4) 10^6/uL Hgb 13.6 (12.0-16.0) g/dL Hct 40.7 (37.0-47.0) % MCV 91.1 (80-100) fL MCH 30.4 (27.0-34.0) pg MCHC 33.4 (33.0-35.0) g/dL Plt Count 147 L (150-450) 10^3/uL Neut % (Auto) 94.8 H (42.2-75.2) % Lymph % (Auto) 4.1 L (20.5-50.1) % [place] % (Auto) 0.5 L (2-8) % Eos % (Auto) 0.4 L (1.0-3.0) % Baso % (Auto) 0.2 (0.0-1.0) % Sodium 139 (135-145) mmol/L Potassium 3.9 (3.6-5.0) mmol/L Chloride 103 (101-111) mmol/L Carbon Dioxide 21.0 (21.0-31.0) mmol/L Anion Gap 18.9 BUN 21 H (7-18) mg/dL Creatinine 1.1 (0.6-1.3) mg/dL Est Cr Clr Drug Dosing 35.48 mL/min Estimated GFR (MDRD) 48 BUN/Creatinine Ratio 19.09 Glucose 213 H (74-105) mg/dL POC Glucose (83-110) mg/dl Lactic Acid (0.5-2.2) mmol/L Calcium 9.0 (8.4-10.2) mg/dl Magnesium 1.3 L (1.8-2.5) mg/dL Total Bilirubin 0.7 (0.2-1.0) mg/dL AST 48 H (10-42) IU/L ALT 25 (10-60) IU/L Alkaline Phosphatase 91 (42-121) IU/L Troponin I 0.02 (0.00-0.02) ng/ml Total Protein 6.6 L (6.7-8.2) g/dl Albumin 3.3 (3.2-5.5) g/dl Globulin 3.3 Albumin/Globulin Ratio 1.00 Amylase 44 (28-100) U/L Lipase 22 (22-51) U/L Urine Color Yellow (YELLOW) Urine Appearance Cloudy (CLEAR) Urine pH 5.5 (5.0-9.0) Ur Specific [place] 1.020 (1.005-1.030) Urine Protein Negative (NEGATIVE) Urine Glucose (UA) Negative (NEGATIVE) Urine Ketones Negative (NEGATIVE) Urine Occult Blood Trace-intact H (NEGATIVE) Urine Nitrite Positive H (NEGATIVE) Urine Bilirubin Negative (NEGATIVE) Urine Urobilinogen 0.2 (0.2-1.0) mg/dL Ur Leukocyte Esterase Small H (NEGATIVE) Urine RBC 0-5 /HPF Urine WBC 5-10 H (0-5/HPF) /HPF Ur Epithelial Cells Rare /HPF Urine Bacteria Many H (0-FEW/HPF) /HPF Ketones 05/31/18 05/31/18 05/31/18 Range/Units 09:13 09:13 09:28 WBC (5.0-10.0) 10^3/uL RBC (4.2-5.4) 10^6/uL Hgb (12.0-16.0) g/dL Hct (37.0-47.0) % MCV (80-100) fL MCH (27.0-34.0) pg MCHC (33.0-35.0) g/dL Plt Count (150-450) 10^3/uL Neut % (Auto) (42.2-75.2) % Lymph % (Auto) (20.5-50.1) % [place] % (Auto) (2-8) % Eos % (Auto) (1.0-3.0) % Baso % (Auto) (0.0-1.0) % Sodium (135-145) mmol/L Potassium (3.6-5.0) mmol/L Chloride (101-111) mmol/L Carbon Dioxide (21.0-31.0) mmol/L Anion Gap BUN (7-18) mg/dL Creatinine (0.6-1.3) mg/dL Est Cr Clr Drug Dosing mL/min Estimated GFR (MDRD) BUN/Creatinine Ratio Glucose (74-105) mg/dL POC Glucose 209 H (83-110) mg/dl Lactic Acid 4.6 H (0.5-2.2) mmol/L Calcium (8.4-10.2) mg/dl Magnesium (1.8-2.5) mg/dL Total Bilirubin (0.2-1.0) mg/dL AST (10-42) IU/L ALT (10-60) IU/L Alkaline Phosphatase (42-121) IU/L Troponin I (0.00-0.02) ng/ml Total Protein (6.7-8.2) g/dl Albumin (3.2-5.5) g/dl Globulin Albumin/Globulin Ratio Amylase (28-100) U/L Lipase (22-51) U/L Urine Color (YELLOW) Urine Appearance (CLEAR) Urine pH (5.0-9.0) Ur Specific [place] (1.005-1.030) Urine Protein (NEGATIVE) Urine Glucose (UA) (NEGATIVE) Urine Ketones (NEGATIVE) Urine Occult Blood (NEGATIVE) Urine Nitrite (NEGATIVE) Urine Bilirubin (NEGATIVE) Urine Urobilinogen (0.2-1.0) mg/dL Ur Leukocyte Esterase (NEGATIVE) Urine RBC /HPF Urine WBC (0-5/HPF) /HPF Ur Epithelial Cells /HPF Urine Bacteria (0-FEW/HPF) /HPF Ketones Negative Meds: Medications Generic Name Dose Route Start Last Admin Trade Name Freq PRN Reason Stop Dose Admin Sodium Chloride 1,000 mls @ 250 mls/hr 05/31/18 09:34 05/31/18 09:46 Normal Saline IV 05/31/18 13:33 250 mls/hr .BOLUS ONE Administration Levofloxacin/Dextrose 500 mg/ 100 mls @ 100 mls/hr 05/31/18 11:59 05/31/18 12 :21 Premix IV 05/31/18 12:58 100 mls/hr ONETIME ONE Administration Sodium Chloride 10 ml 05/31/18 08:51 05/31/18 09:46 Saline Flush FLUSH 10 ml ASDIRECTED PRN Administration Keep Vein Open Discontinued Medications Generic Name Dose Route Start Last Admin Trade Name Matt PRN Reason Stop Dose Admin Hydromorphone HCl 0.5 mg 05/31/18 12:12 05/31/18 12:21 Dilaudid IVPUSH 05/31/18 12:13 0.5 mg ONETIME ONE Administration Magnesium Sulfate 2 gm/ Premix 50 mls @ 25 mls/hr 05/31/18 10:13 05/31/18 10: 38 IV 05/31/18 12:12 25 mls/hr ONETIME ONE Administration Ondansetron HCl 4 mg 05/31/18 09:34 05/31/18 09:46 Zofran IV 05/31/18 09:35 4 mg ONETIME ONE Administration Ondansetron HCl 4 mg 05/31/18 12:12 05/31/18 12:21 Zofran IV 05/31/18 12:13 4 mg ONETIME ONE Administration - Radiology Interpretation Free Text/Narrative:: CT Abd/Pelvis: no acute findings, see Rad report. Departure - Departure Time of Disposition: 12:24 (admitted to Dr. Pisano) Disposition: Admitted As Inpatient 66 Condition: Fair Clinical Impression: Hypomagnesemia, Nausea, vomiting, and diarrhea, Generalized weakness UTI (urinary tract infection) Qualifiers: Urinary tract infection type: site unspecified Hematuria presence: without hematuria Qualified Code(s): N39.0 - Urinary tract infection, site not specified - Discharge Information *PRESCRIPTION DRUG MONITORING PROGRAM REVIEWED*: No *COPY OF PRESCRIPTION DRUG MONITORING REPORT IN PATIENT ALEXANDREA: No Forms: ED Department Discharge - My Orders Last 24 Hours: My Active Orders 05/31/18 08:50 EKG 12 Lead [EKG Documentation Completion] [RC] STAT Blood Culture x2 Reflex Set [OM.PC] Stat Peripheral IV Insertion Adult [OM.PC] Stat 05/31/18 08:51 Blood Glucose Check, Bedside [RC] ONETIME Peripheral IV Care [RC] . DIRECTED CULTURE URINE [RM] Stat Sodium Chloride 0.9% [Saline Flush] 10 ml FLUSH ASDIRECTED PRN 05/31/18 09:05 CULTURE BLOOD [BC] Stat 05/31/18 09:13 CULTURE BLOOD [BC] Stat 05/31/18 09:34 Sodium Chloride 0.9% [Normal Saline] 1,000 ml IV .BOLUS 05/31/18 11:59 Levofloxacin/Dextrose 5%-Water [Levaquin in D5W 500 MG/100 ML] 500 mg Premix Bag 1 bag IV ONETIME - Assessment/Plan Last 24 Hours: My Active Orders 05/31/18 08:50 EKG 12 Lead [EKG Documentation Completion] [RC] STAT Blood Culture x2 Reflex Set [OM.PC] Stat Peripheral IV Insertion Adult [OM.PC] Stat 05/31/18 08:51 Blood Glucose Check, Bedside [RC] ONETIME Peripheral IV Care [RC] . DIRECTED CULTURE URINE [RM] Stat Sodium Chloride 0.9% [Saline Flush] 10 ml FLUSH ASDIRECTED PRN 05/31/18 09:05 CULTURE BLOOD [BC] Stat 05/31/18 09:13 CULTURE BLOOD [BC] Stat 05/31/18 09:34 Sodium Chloride 0.9% [Normal Saline] 1,000 ml IV .BOLUS 05/31/18 11:59 Levofloxacin/Dextrose 5%-Water [Levaquin in D5W 500 MG/100 ML] 500 mg Premix Bag 1 bag IV ONETIME
[2018-05-31] MEDS ORDERED: Sodium Chloride 0.9% 1,000 ML IV ONE (09:34)
[2018-05-31] MEDS ORDERED: Ondansetron 4 MG/2 ML SDV IV ONE ×2 (09:34→12:12)
[2018-05-31 09:43] LABS: ANION GAP 18.9
[2018-05-31] MEDS: Sodium Chloride 0.9% 10 ML Syringe FLUSH PRN ×3 (09:46→21:39)
[2018-05-31] MEDS ORDERED: Magnesium Sulfate/Water 2 GM in Premix Bag 1 BAG IV ONE ×2 (10:13→14:00)
--- NOTE | 2018-05-31 11:44 | CT ---
Clinical history: 82-year-old hypertensive 220 pound diabetic female with lower abdominal pain for the past week and diarrhea. Scan technique: Volume acquisition of data emergency unenhanced CT scan of the abdomen and pelvis obtained while the patient was lying supine on the Siemens multi slice scanner [place], [place]. All data archived in the PACS system for storage, reformatting axial/sagittal/coronal planes and study. Interpretation: 1. Numerous diverticula scattered along the sigmoid colon LLQ abdomen without associated signs of inflammation i.e. no pericolonic inflammatory "dirty" peritoneal fat and no signs of abscess or mechanical bowel obstruction. 2. Gallbladder, unenhanced liver, stomach, spleen, pancreas and adrenal glands unremarkable. 3. Normal reniform size, axis and configuration. No sign of renal cortical mass (unenhanced exam), nephrolithiasis or obstructive uropathy (vascular calcifications both sides of the pelvis). Symmetrically distended urinary bladder without stones. 4. No pelvic or abdominal mass lesion, pelvic/mesenteric/retroperitoneal lymphadenopathy, signs of mechanical bowel obstruction, ascites or free intraperitoneal air. No inflammatory "dirty" peritoneal fat. Tiny calcification RLQ. (Appendix) 5. Calcifications scattered along the course of normal caliber abdominal aorta and its major branches. No aneurysm/dissection. 6. Osteoporosis. Evidence of extensive lumbar spine surgery (discs and fusions). AP pelvis and arthritic hips unremarkable. 7. Lung bases clear. Calcification posterior wall lower left ventricle suggest old myocardial infarction or thrombus. CONCLUSION: Abnormal lumbar spine (see above). Sigmoid diverticulosis. Appendicolith. Unenhanced CT abdomen/pelvis o/w unremarkable.
[2018-05-31] MEDS ORDERED: Levofloxacin/Dextrose 5%-Water 500 MG in Premix Bag 1 BAG IV ONE (11:59)
[2018-05-31] MEDS ORDERED: HYDROmorphone 1 MG/ML Syringe IVPUSH ONE (12:12)
[2018-05-31] MEDS ORDERED: HYDROCORTISONE 30 GM RC PRN (13:11)
--- NOTE | 2018-05-31 13:28 | PCM.HP ---
H&P History of Present Illness - General Date of Service: 05/31/18 Admit Problem/Dx: Admission Diagnosis/Problem Admission Diagnosis/Problem Weakness Source of Information: Patient History Limitations: Reports: No Limitations - History of Present Illness Initial Comments - Free Text/Narative: Elise is 82 y/o Female with PMH of HTN, DM-II, chronic Lower Back pain, obesity. She presented to the ER with generalized weakness, nausea, vomiting and loose stools. She said she woke up this morning feeling very weak to the point of unable to help herself up. She has been having nausea, vomiting, diarrhea on and off. This morning she vomited several times and also juan diarrhea. She was recently seen and treated for stomach flu. She notes associated abdominal pain. Pain is more like a discomfort and is diffused. Stool is watery and mucoid. She denies blood in stool. She reports chills but denies fever. No hematemesis, hematochezia, melena. She says she feels so dry. In the ER labs were essentially normal but UA was positive for UTI. She received Levaquin, IF, and Zofran. She is being admitted to the hospital for further management. Onset of Symptoms: Reports: Gradual Duration of Symptoms: Reports: Day(s): Location: Reports: Abdomen Quality: Reports: Ache Severity: Moderate Improves with: Reports: None Worsens with: Reports: None Context: Reports: Other (none) Associated Symptoms: Reports: Fever/Chills, Nausea/Vomiting, Weakness - Related Data Allergies/Adverse Reactions: Allergies Allergy/AdvReac Type Severity Reaction Status Date / Time meperidine Allergy Unknown Nausea and Verified 05/31/18 13:00 Vomiting morphine Allergy Unknown Nausea and Verified 05/31/18 13:00 Vomiting rosuvastatin Allergy Unknown Stomach Verified 05/31/18 13:00 Upset simvastatin Allergy Unknown Abdominal Verified 05/31/18 13:00 Pain Home Medications: Home Meds Ascorbic Acid [C-1000] 1,000 mg PO DAILY 05/12/16 [History] Aspirin [Adult Low Dose Aspirin EC] 81 mg PO DAILY 05/12/16 [History] Atenolol 50 mg PO DAILY 05/12/16 [History] Gabapentin [Neurontin] 300 mg PO QID 05/12/16 [History] Hydrochlorothiazide 25 mg PO DAILY 05/12/16 [History] Hydrocortisone [Anusol-HC] 30 gm RC BID PRN 05/12/16 [History] Loratadine [Claritin] 10 mg PO DAILY 05/12/16 [History] Omeprazole 40 mg PO ACBREAKFAST 05/12/16 [History] metFORMIN HCl [Metformin HCl ER] 1,000 mg PO BIDMEALS 05/12/16 [History] Acetaminophen with Codeine [Tylenol with Codeine #3 Tablet] 1 - 2 each PO Q6H PRN #45 tablet 05/27/16 [Rx] Past Medical History HEENT History: Reports: Cataract Cardiovascular History: Reports: Hypertension Respiratory History: Reports: None Other Respiratory History: seasonal sinus Gastrointestinal History: Reports: Hemorrhoids Genitourinary History: Reports: Urinary Incontinence, UTI, Recurrent REGULATORY CONSULTANT History: Reports: Endometriosis Musculoskeletal History: Reports: Back Pain, Chronic Neurological History: Reports: None Endocrine/Metabolic History: Reports: Diabetes, Type II, Obesity/BMI 30+ - Infectious Disease History Infectious Disease History: Reports: Chicken Pox, Measles, Mumps, Rubella - Past Surgical History HEENT Surgical History: Reports: Cataract Surgery Cardiovascular Surgical History: Reports: None Respiratory Surgical History: Reports: None GI Surgical History: Reports: Colonoscopy Neurological Surgical History: Reports: Spinal Fusion Musculoskeletal Surgical History: Reports: Knee Replacement Social & Family History - Family History Family Medical History: Noncontributory - Tobacco Use Smoking Status *Q: Never Smoker Second Hand Smoke Exposure: No - Caffeine Use Caffeine Use: Reports: Coffee - Recreational Drug Use Recreational Drug Use: No - Living Situation & Occupation Living situation: Reports: , with Spouse Occupation: Retired H&P Review of Systems - Review of Systems: Review Of Systems: See Below General: Reports: Chills HEENT: Reports: No Symptoms Pulmonary: Reports: No Symptoms Cardiovascular: Reports: No Symptoms Gastrointestinal: Reports: Abdominal Pain, Anorexia, Diarrhea, Nausea, Vomiting Genitourinary: Reports: No Symptoms Musculoskeletal: Reports: No Symptoms Skin: Reports: No Symptoms Psychiatric: Reports: No Symptoms Neurological: Reports: No Symptoms Hematologic/Lymphatic: Reports: No Symptoms Immunologic: Reports: No Symptoms Exam - Exam Exam: See Below - Vital Signs Vital Signs: Last Vital Signs Temp 98.2 F 05/31/18 08:48 Pulse 96 05/31/18 08:48 Resp 16 05/31/18 08:48 BP 134/55 L 05/31/18 08:48 Pulse Ox 95 05/31/18 08:48 Weight: 215 lb 4 oz - Exam Quality Assessment: DVT Prophylaxis General: Alert, Oriented, 4 HEENT: PERRLA, Hearing Intact, Mucosa Moist & [place], Nares Patent, Normal Nasal Septum, Posterior Pharynx Clear, Conjunctiva Clear, EOMI, EACs Clear, TMs Clear Neck: Supple, Trachea Midline, 2 Lungs: Clear to Auscultation, Normal Respiratory Effort Cardiovascular: Regular Rate, Regular Rhythm GI/Abdominal Exam: Normal Bowel Sounds, Soft, Non-Tender, No Organomegaly, No Distention, No Abnormal Bruit, No Mass, Pelvis Stable (Female) Exam: Normal External Exam, Normal Speculum Exam, Normal Bimanual Exam Rectal (Female) Exam: Normal Exam, Normal Rectal Tone Back Exam: Normal Inspection, Full Range of Motion, NT Extremities: Normal Inspection, Normal Range of Motion, Non-Tender, No Pedal Edema, Normal Capillary Refill Skin: Warm, Dry, Intact Neurological: Cranial Nerves Intact, Reflexes Equal Bilateral Neuro Extensive - Mental Status: Alert, Oriented x3, Normal Mood/Affect, Normal Cognition Neuro Extensive - Motor, Sensory, Reflexes: CN II-XII Intact, Normal Gait, Normal Reflexes Psychiatric: Alert, Normal Affect, Normal Mood - Patient Data Lab Results Last 24 hrs: Laboratory Results - last 24 hr 05/31/18 05/31/18 05/31/18 Range/Units 08:51 09:13 09:13 WBC 8.2 (5.0-10.0) 10^3/uL RBC 4.47 (4.2-5.4) 10^6/uL Hgb 13.6 (12.0-16.0) g/dL Hct 40.7 (37.0-47.0) % MCV 91.1 (80-100) fL MCH 30.4 (27.0-34.0) pg MCHC 33.4 (33.0-35.0) g/dL Plt Count 147 L (150-450) 10^3/uL Neut % (Auto) 94.8 H (42.2-75.2) % Lymph % (Auto) 4.1 L (20.5-50.1) % [place] % (Auto) 0.5 L (2-8) % Eos % (Auto) 0.4 L (1.0-3.0) % Baso % (Auto) 0.2 (0.0-1.0) % Sodium 139 (135-145) mmol/L Potassium 3.9 (3.6-5.0) mmol/L Chloride 103 (101-111) mmol/L Carbon Dioxide 21.0 (21.0-31.0) mmol/L Anion Gap 18.9 BUN 21 H (7-18) mg/dL Creatinine 1.1 (0.6-1.3) mg/dL Est Cr Clr Drug Dosing 35.48 mL/min Estimated GFR (MDRD) 48 BUN/Creatinine Ratio 19.09 Glucose 213 H (74-105) mg/dL POC Glucose (83-110) mg/dl Lactic Acid (0.5-2.2) mmol/L Calcium 9.0 (8.4-10.2) mg/dl Magnesium 1.3 L (1.8-2.5) mg/dL Total Bilirubin 0.7 (0.2-1.0) mg/dL AST 48 H (10-42) IU/L ALT 25 (10-60) IU/L Alkaline Phosphatase 91 (42-121) IU/L Troponin I 0.02 (0.00-0.02) ng/ml Total Protein 6.6 L (6.7-8.2) g/dl Albumin 3.3 (3.2-5.5) g/dl Globulin 3.3 Albumin/Globulin Ratio 1.00 Amylase 44 (28-100) U/L Lipase 22 (22-51) U/L Urine Color Yellow (YELLOW) Urine Appearance Cloudy (CLEAR) Urine pH 5.5 (5.0-9.0) Ur Specific [place] 1.020 (1.005-1.030) Urine Protein Negative (NEGATIVE) Urine Glucose (UA) Negative (NEGATIVE) Urine Ketones Negative (NEGATIVE) Urine Occult Blood Trace-intact H (NEGATIVE) Urine Nitrite Positive H (NEGATIVE) Urine Bilirubin Negative (NEGATIVE) Urine Urobilinogen 0.2 (0.2-1.0) mg/dL Ur Leukocyte Esterase Small H (NEGATIVE) Urine RBC 0-5 /HPF Urine WBC 5-10 H (0-5/HPF) /HPF Ur Epithelial Cells Rare /HPF Urine Bacteria Many H (0-FEW/HPF) /HPF Ketones 05/31/18 05/31/18 05/31/18 Range/Units 09:13 09:13 09:28 WBC (5.0-10.0) 10^3/uL RBC (4.2-5.4) 10^6/uL Hgb (12.0-16.0) g/dL Hct (37.0-47.0) % MCV (80-100) fL MCH (27.0-34.0) pg MCHC (33.0-35.0) g/dL Plt Count (150-450) 10^3/uL Neut % (Auto) (42.2-75.2) % Lymph % (Auto) (20.5-50.1) % [place] % (Auto) (2-8) % Eos % (Auto) (1.0-3.0) % Baso % (Auto) (0.0-1.0) % Sodium (135-145) mmol/L Potassium (3.6-5.0) mmol/L Chloride (101-111) mmol/L Carbon Dioxide (21.0-31.0) mmol/L Anion Gap BUN (7-18) mg/dL Creatinine (0.6-1.3) mg/dL Est Cr Clr Drug Dosing mL/min Estimated GFR (MDRD) BUN/Creatinine Ratio Glucose (74-105) mg/dL POC Glucose 209 H (83-110) mg/dl Lactic Acid 4.6 H (0.5-2.2) mmol/L Calcium (8.4-10.2) mg/dl Magnesium (1.8-2.5) mg/dL Total Bilirubin (0.2-1.0) mg/dL AST (10-42) IU/L ALT (10-60) IU/L Alkaline Phosphatase (42-121) IU/L Troponin I (0.00-0.02) ng/ml Total Protein (6.7-8.2) g/dl Albumin (3.2-5.5) g/dl Globulin Albumin/Globulin Ratio Amylase (28-100) U/L Lipase (22-51) U/L Urine Color (YELLOW) Urine Appearance (CLEAR) Urine pH (5.0-9.0) Ur Specific [place] (1.005-1.030) Urine Protein (NEGATIVE) Urine Glucose (UA) (NEGATIVE) Urine Ketones (NEGATIVE) Urine Occult Blood (NEGATIVE) Urine Nitrite (NEGATIVE) Urine Bilirubin (NEGATIVE) Urine Urobilinogen (0.2-1.0) mg/dL Ur Leukocyte Esterase (NEGATIVE) Urine RBC /HPF Urine WBC (0-5/HPF) /HPF Ur Epithelial Cells /HPF Urine Bacteria (0-FEW/HPF) /HPF Ketones Negative Result Diagrams: 05/31/18 09:13 05/31/18 09:13 Sanjay Results Last 24 hrs: Microbiology 05/31/18 09:05 Anaerobic Blood Culture - Final Blood - Venous - Lab Draw 05/31/18 09:13 Anaerobic Blood Culture - Final Blood - Venous - Problem List (1) Diabetes mellitus SNOMED Code(s): 45165720 ICD Code: E11.9 - TYPE 2 DIABETES MELLITUS WITHOUT COMPLICATIONS Status: Acute Current Visit: Yes (2) Generalized weakness SNOMED Code(s): 47623529 ICD Code: R53.1 - WEAKNESS Status: Acute Current Visit: No (3) Hypomagnesemia SNOMED Code(s): 889536112 ICD Code: E83.42 - HYPOMAGNESEMIA Status: Acute Current Visit: No (4) Nausea, vomiting, and diarrhea SNOMED Code(s): 4063499 ICD Code: R11.2 - NAUSEA WITH VOMITING, UNSPECIFIED; R19.7 - DIARRHEA, UNSPECIFIED Status: Acute Current Visit: No (5) UTI (urinary tract infection) SNOMED Code(s): 35171889 ICD Code: N39.0 - URINARY TRACT INFECTION, SITE NOT SPECIFIED Status: Acute Current Visit: No Qualifiers: Urinary tract infection type: site unspecified Hematuria presence: without hematuria Qualified Code(s): N39.0 - Urinary tract infection, site not specified Problem List Initiated/Reviewed/Updated: Yes Orders Last 24hrs: Active Orders 24 hr Category Date Time Status Patient Status [ADT] Routine ADT 05/31/18 13:06 Ordered Ambulate [RC] ASDIRECTED Care 05/31/18 13:06 Ordered Antiembolic Devices [RC] .Routine Care 05/31/18 13:09 Ordered Intake and Output [RC] QSHIFT Care 05/31/18 13:08 Ordered Notify Provider Vital Signs [RC] ASDIRECTED Care 05/31/18 13:08 Ordered VTE/DVT Education [RC] PER UNIT ROUTINE Care 05/31/18 13:09 Ordered Vital Signs [RC] Q4H Care 05/31/18 13:06 Ordered BASIC METABOLIC PANEL,BMP [CHEM] AM Lab 06/01/18 05:11 Ordered CBC WITH AUTO DIFF [HEME] AM Lab 06/01/18 05:11 Ordered CLOSTRIDIUM DIFFICILE TOX RFLX [MREF] Routine Lab 05/31/18 13:17 Ordered CULTURE BLOOD [BC] Stat Lab 05/31/18 09:05 Results CULTURE BLOOD [BC] Stat Lab 05/31/18 09:13 Results CULTURE STOOL [RM] Routine Lab 05/31/18 13:13 Ordered CULTURE URINE [RM] Stat Lab 05/31/18 08:51 Received Aspirin [Halfprin] Med 06/01/18 09:00 Ordered 81 mg PO DAILY Atenolol [Tenormin] Med 06/01/18 09:00 Ordered 50 mg PO DAILY Gabapentin [Neurontin] Med 05/31/18 17:00 Ordered 300 mg PO QID Heparin Sodium Med 05/31/18 13:15 Ordered 5,000 units SUBCUT Q12H Hydrocortisone [Anusol-HC] Med 05/31/18 13:11 Ordered 30 gm RC BID PRN Levofloxacin/Dextrose 5%-Water [Levaquin in D5W 750 MG/ Med 06/01/18 09:00 Ordered 150 ML] 750 mg Premix Bag 1 bag IV Q24H Omeprazole [Omeprazole] Med 06/01/18 06:00 Ordered 40 mg PO ACBREAKFAST Ondansetron [Zofran] Med 05/31/18 13:11 Ordered 4 mg IV Q8H PRN Sodium Chloride 0.9% [Normal Saline] 1,000 ml Med 05/31/18 09:34 Active IV .BOLUS Sodium Chloride 0.9% [Saline Flush] Med 05/31/18 08:51 Active 10 ml FLUSH ASDIRECTED PRN hydroCHLOROthiazide Med 06/01/18 09:00 Ordered 25 mg PO DAILY Blood Culture x2 Reflex Set [OM.PC] Stat Oth 05/31/18 08:50 Ordered DVT/VTE Prophylaxis Reflex [OM.PC] Routine Oth 05/31/18 13:06 Ordered Isolation [COMM] Stat Oth 05/31/18 13:18 Ordered Peripheral IV Insertion Adult [OM.PC] Stat Oth 05/31/18 08:50 Ordered Resuscitation Status Routine Resus Stat 05/31/18 13:06 Ordered Medication Orders Aspirin (Halfprin) 81 mg PO DAILY NORMA Atenolol (Tenormin) 50 mg PO DAILY NORMA Gabapentin (Neurontin) 300 mg PO QID NORMA Heparin Sodium (Porcine) (Heparin Sodium) 5,000 units SUBCUT Q12H NORMA Hydrochlorothiazide (Hydrochlorothiazide) 25 mg PO DAILY NORMA Sodium Chloride (Normal Saline) 1,000 mls @ 250 mls/hr IV .BOLUS ONE Stop: 05/31/18 13:33 Last Admin: 05/31/18 09:46 Dose: 250 mls/hr Levofloxacin/Dextrose 750 mg/ (Premix) 150 mls @ 100 mls/hr IV Q24H NORMA Non-Formulary Medication (Hydrocortisone [Anusol-Hc]) 30 gm RC BID PRN PRN Reason: Hemorrhoids Non-Formulary Medication (Omeprazole [Omeprazole]) 40 mg PO ACBREAKFAST NORMA Ondansetron HCl (Zofran) 4 mg IV Q8H PRN PRN Reason: Nausea/Vomiting Sodium Chloride (Saline Flush) 10 ml FLUSH ASDIRECTED PRN PRN Reason: Keep Vein Open Last Admin: 05/31/18 09:46 Dose: 10 ml Assessment/Plan Comment:: Generalized weakness due to dehydration from diarrhea, vomiting She presented to the ER via EMS with weakness, nausea, diarrhea, vomiting CT abdominal was negative for acute pathology UA positive for UA Admit to general medical floors monitor vitals IVF PT/OT Gastroenteritis This is likely viral Send for stool studies IVF UA Urine cx Continue Levaquin Hypomagnesemia Replace IV Elevated AST will repeat liver enzymes DM-II Uncontrolled Lantus plus SSI POC glucose 4x daily Hypoglycemic protocol HTN Continue home medications Obesity Counseled on weight reduction measures Diet Diabetic Code Full
[2018-05-31] MEDS: Gabapentin 300 MG Cap PO SCH ×2 (17:23→21:08)
[2018-05-31] MEDS: Insulin Lispro 100 Units/ML 3 ML Vial SUBCUT SCH ×2 (17:23→21:34)
[2018-05-31] MEDS ORDERED: Ondansetron 4 MG/2 ML SDV IV PRN (20:00)
[2018-05-31] MEDS: Heparin Sodium 5,000 Units/ML Vial SUBCUT SCH (21:09)
[2018-05-31] MEDS: Acetaminophen 325 MG Tab PO PRN (23:39)
[2018-06-01] MEDS: Sodium Chloride 0.9% 10 ML Syringe FLUSH PRN (05:52)
[2018-06-01] MEDS ORDERED: cefTRIAXone 1 GM in Sodium Chloride 0.9% 50 ML IV SCH (06:00)
[2018-06-01] MEDS ORDERED: Omeprazole 20 MG Cap.CR PO SCH (06:00)
[2018-06-01] MEDS: Acetaminophen 325 MG Tab PO PRN (07:11)
[2018-06-01 07:13] LABS: ANION GAP 15.9
[2018-06-01] MEDS: Gabapentin 300 MG Cap PO SCH ×2 (08:27→13:03)
[2018-06-01] MEDS: Heparin Sodium 5,000 Units/ML Vial SUBCUT SCH (08:28)
[2018-06-01] MEDS: Insulin Lispro 100 Units/ML 3 ML Vial SUBCUT SCH ×2 (08:28→12:41)
[2018-06-01] MEDS ORDERED: Sodium Chloride 0.9% 1,000 ML IV SCH (08:30)
[2018-06-01] MEDS ORDERED: Aspirin 81 MG Tab.EC PO SCH (09:00)
[2018-06-01] MEDS ORDERED: Atenolol 50 MG Tab PO SCH (09:00)
[2018-06-01] MEDS ORDERED: Hydrochlorothiazide 25 MG Tab PO SCH (09:00)
[2018-06-01] MEDS ORDERED: Levofloxacin/Dextrose 5%-Water 750 MG in Premix Bag 1 BAG IV SCH (09:00)
--- NOTE | 2018-06-01 11:11 | PCM.DCSUM1 ---
Discharge Summary - Hospital Course Free Text/Narrative:: Elise is 82 y/o Female with PMH of HTN, DM-II, chronic Lower Back pain, obesity. She presented to the ER with generalized weakness, nausea, vomiting and loose stools. She was found to have UTI. Urine cx was positive for gram negative bacilli. She received IVF, IV abx with overall improvement in her condition. She is being discharged home in a stable condition. She will follow up with PCP in 5 days. Diagnosis: Stroke: No - Discharge Data Discharge Date: 06/01/18 Discharge Disposition: Home, Self-Care 01 Condition: Fair - Discharge Diagnosis/Problem(s) (1) Diabetes mellitus SNOMED Code(s): 97538496 ICD Code: E11.9 - TYPE 2 DIABETES MELLITUS WITHOUT COMPLICATIONS Status: Acute Current Visit: Yes (2) Generalized weakness SNOMED Code(s): 53117051 ICD Code: R53.1 - WEAKNESS Status: Acute Current Visit: No (3) Hypomagnesemia SNOMED Code(s): 956009471 ICD Code: E83.42 - HYPOMAGNESEMIA Status: Acute Current Visit: No (4) Nausea, vomiting, and diarrhea SNOMED Code(s): 5964062 ICD Code: R11.2 - NAUSEA WITH VOMITING, UNSPECIFIED; R19.7 - DIARRHEA, UNSPECIFIED Status: Acute Current Visit: No (5) UTI (urinary tract infection) SNOMED Code(s): 30695848 ICD Code: N39.0 - URINARY TRACT INFECTION, SITE NOT SPECIFIED Status: Acute Current Visit: No Qualifiers: Urinary tract infection type: site unspecified Hematuria presence: without hematuria Qualified Code(s): N39.0 - Urinary tract infection, site not specified - Patient Summary/Data Consults: Consultations 05/31/18 13:38 OT Evaluation and Treatment [CONS] Routine PT Evaluation and Treatment [CONS] Routine - Discharge Plan *PRESCRIPTION DRUG MONITORING PROGRAM REVIEWED*: No *COPY OF PRESCRIPTION DRUG MONITORING REPORT IN PATIENT ALEXANDREA: No Prescriptions/Med Rec: Levofloxacin [Levaquin] 750 mg PO DAILY 5 Days #5 tablet Home Medications: Home Meds Ascorbic Acid [C-1000] 1,000 mg PO DAILY 05/12/16 [History] Aspirin [Adult Low Dose Aspirin EC] 81 mg PO DAILY 05/12/16 [History] Atenolol 50 mg PO DAILY 05/12/16 [History] Gabapentin [Neurontin] 300 mg PO QID 05/12/16 [History] Hydrochlorothiazide 25 mg PO DAILY 05/12/16 [History] Hydrocortisone [Anusol-HC] 30 gm RC BID PRN 05/12/16 [History] Loratadine [Claritin] 10 mg PO DAILY 05/12/16 [History] Omeprazole 40 mg PO ACBREAKFAST 05/12/16 [History] metFORMIN HCl [Metformin HCl ER] 1,000 mg PO BIDMEALS 05/12/16 [History] Acetaminophen with Codeine [Tylenol with Codeine #3 Tablet] 1 - 2 each PO Q6H PRN #45 tablet 05/27/16 [Rx] Cholecalciferol (Vitamin D3) [Vitamin D] 1,000 unit PO DAILY 05/31/18 [History] Lactobacillus Combination No.4 [Probiotic] 1 each PO DAILY 05/31/18 [History] Loperamide HCl [Anti-Diarrheal] 4 mg PO Q6H PRN 05/31/18 [History] Levofloxacin [Levaquin] 750 mg PO DAILY 5 Days #5 tablet 06/01/18 [Rx] Oxygen Therapy Mode: Room Air Patient Handouts: Nausea and Vomiting, Adult, [id number], Urinary Tract Infection, Adult Referrals: PCP,Unobtain [Primary Care Provider] - - Discharge Summary/Plan Comment DC Time >30 min.: Yes - General Info Date of Service: 06/01/18 Admission Dx/Problem (Free Text: Admission Diagnosis/Problem Admission Diagnosis/Problem Weakness Functional Status: Reports: Pain Controlled - Review of Systems General: Reports: No Symptoms HEENT: Reports: No Symptoms Pulmonary: Reports: No Symptoms Cardiovascular: Reports: No Symptoms Gastrointestinal: Reports: No Symptoms Genitourinary: Reports: No Symptoms Musculoskeletal: Reports: No Symptoms Skin: Reports: No Symptoms Neurological: Reports: No Symptoms Psychiatric: Reports: No Symptoms - Patient Data Vitals - Most Recent: Last Vital Signs Temp 98.5 F 06/01/18 07:30 Pulse 66 06/01/18 08:26 Resp 18 06/01/18 07:30 BP 133/52 L 06/01/18 08:26 Pulse Ox 98 06/01/18 07:30 Weight - Most Recent: 215 lb 4 oz I&O - Last 24 hours: Intake & Output 05/31/18 06/01/18 06/01/18 22:59 06:59 14:59 Intake Total 400 248 200 Output Total 200 400 Balance 200 -152 200 Lab Results - Last 24 hrs: Laboratory Results - last 24 hr 05/31/18 05/31/18 05/31/18 Range/Units 08:51 16:51 21:12 WBC (5.0-10.0) 10^3/uL RBC (4.2-5.4) 10^6/uL Hgb (12.0-16.0) g/dL Hct (37.0-47.0) % MCV (80-100) fL MCH (27.0-34.0) pg MCHC (33.0-35.0) g/dL Plt Count (150-450) 10^3/uL Neut % (Auto) (42.2-75.2) % Lymph % (Auto) (20.5-50.1) % [place] % (Auto) (2-8) % Eos % (Auto) (1.0-3.0) % Baso % (Auto) (0.0-1.0) % Sodium (135-145) mmol/L Potassium (3.6-5.0) mmol/L Chloride (101-111) mmol/L Carbon Dioxide (21.0-31.0) mmol/L Anion Gap BUN (7-18) mg/dL Creatinine (0.6-1.3) mg/dL Est Cr Clr Drug Dosing mL/min Estimated GFR (MDRD) Glucose (74-105) mg/dL POC Glucose 238 H 285 H (83-110) mg/dl Lactic Acid (0.5-2.2) mmol/L Calcium (8.4-10.2) mg/dl Magnesium (1.8-2.5) mg/dL Urine RBC 0-5 /HPF Urine WBC 5-10 H (0-5/HPF) /HPF Ur Epithelial Cells Rare /HPF Urine Bacteria Many H (0-FEW/HPF) /HPF 06/01/18 06/01/18 06/01/18 Range/Units 06:23 06:23 06:23 WBC 13.3 H (5.0-10.0) 10^3/uL RBC 3.94 L (4.2-5.4) 10^6/uL Hgb 11.8 L D (12.0-16.0) g/dL Hct 36.2 L (37.0-47.0) % MCV 91.9 (80-100) fL MCH 29.9 (27.0-34.0) pg MCHC 32.6 L (33.0-35.0) g/dL Plt Count 115 L (150-450) 10^3/uL Neut % (Auto) 79.9 H (42.2-75.2) % Lymph % (Auto) 12.8 L (20.5-50.1) % [place] % (Auto) 5.0 (2-8) % Eos % (Auto) 2.1 (1.0-3.0) % Baso % (Auto) 0.2 (0.0-1.0) % Sodium 136 (135-145) mmol/L Potassium 3.9 (3.6-5.0) mmol/L Chloride 101 (101-111) mmol/L Carbon Dioxide 23.0 (21.0-31.0) mmol/L Anion Gap 15.9 BUN 24 H (7-18) mg/dL Creatinine 1.1 (0.6-1.3) mg/dL Est Cr Clr Drug Dosing 34.05 mL/min Estimated GFR (MDRD) 48 Glucose 174 H (74-105) mg/dL POC Glucose (83-110) mg/dl Lactic Acid (0.5-2.2) mmol/L Calcium 8.4 (8.4-10.2) mg/dl Magnesium 2.4 (1.8-2.5) mg/dL Urine RBC /HPF Urine WBC (0-5/HPF) /HPF Ur Epithelial Cells /HPF Urine Bacteria (0-FEW/HPF) /HPF 06/01/18 06/01/18 Range/Units 07:02 08:25 WBC (5.0-10.0) 10^3/uL RBC (4.2-5.4) 10^6/uL Hgb (12.0-16.0) g/dL Hct (37.0-47.0) % MCV (80-100) fL MCH (27.0-34.0) pg MCHC (33.0-35.0) g/dL Plt Count (150-450) 10^3/uL Neut % (Auto) (42.2-75.2) % Lymph % (Auto) (20.5-50.1) % [place] % (Auto) (2-8) % Eos % (Auto) (1.0-3.0) % Baso % (Auto) (0.0-1.0) % Sodium (135-145) mmol/L Potassium (3.6-5.0) mmol/L Chloride (101-111) mmol/L Carbon Dioxide (21.0-31.0) mmol/L Anion Gap BUN (7-18) mg/dL Creatinine (0.6-1.3) mg/dL Est Cr Clr Drug Dosing mL/min Estimated GFR (MDRD) Glucose (74-105) mg/dL POC Glucose 180 H (83-110) mg/dl Lactic Acid 1.4 (0.5-2.2) mmol/L Calcium (8.4-10.2) mg/dl Magnesium (1.8-2.5) mg/dL Urine RBC /HPF Urine WBC (0-5/HPF) /HPF Ur Epithelial Cells /HPF Urine Bacteria (0-FEW/HPF) /HPF K[place]STANTIN Results - Last 24 hrs: Microbiology 05/31/18 09:05 Aerobic Blood Culture - Preliminary Blood - Venous - Lab Draw NO GROWTH AFTER 1 DAY Anaerobic Blood Culture - Final 05/31/18 09:13 Aerobic Blood Culture - Preliminary Blood - Venous NO GROWTH AFTER 1 DAY Anaerobic Blood Culture - Final 05/31/18 08:51 Urine Culture - Preliminary Urine, Voided Med Orders - Current: Current Medications Acetaminophen (Tylenol) 650 mg PO Q6H PRN PRN Reason: Pain Last Admin: 06/01/18 07:11 Dose: 650 mg Aspirin (Halfprin) 81 mg PO DAILY [facility] Last Admin: 06/01/18 08:27 Dose: 81 mg Atenolol (Tenormin) 50 mg PO DAILY [facility] Last Admin: 06/01/18 08:26 Dose: 50 mg Gabapentin (Neurontin) 300 mg PO QID [facility] Last Admin: 06/01/18 08:27 Dose: 300 mg Heparin Sodium (Porcine) (Heparin Sodium) 5,000 units SUBCUT Q12HR [facility] Last Admin: 06/01/18 08:28 Dose: 5,000 units Hydrochlorothiazide (Hydrochlorothiazide) 25 mg PO DAILY [facility] Last Admin: 06/01/18 08:31 Dose: 25 mg Ceftriaxone Sodium 1 gm/ (Sodium Chloride) 50 mls @ 100 mls/hr IV Q24H NORMA Last Admin: 06/01/18 05:53 Dose: 100 mls/hr Sodium Chloride (Normal Saline) 1,000 mls @ 100 mls/hr IV ASDIRECTED NORMA Insulin Human Lispro (Humalog) 0 unit SUBCUT ACBED NORMA; Protocol Last Admin: 06/01/18 08:28 Dose: 2 units Omeprazole (Omeprazole) 40 mg PO ACBREAKFAST NORMA Last Admin: 06/01/18 05:48 Dose: 40 mg Ondansetron HCl (Zofran) 4 mg IV Q8HR PRN PRN Reason: Nausea/Vomiting Sodium Chloride (Saline Flush) 10 ml FLUSH ASDIRECTED PRN PRN Reason: Keep Vein Open Last Admin: 06/01/18 05:52 Dose: 10 ml Discontinued Medications Hydromorphone HCl (Dilaudid) 0.5 mg IVPUSH ONETIME ONE Stop: 05/31/18 12:13 Last Admin: 05/31/18 12:21 Dose: 0.5 mg Sodium Chloride (Normal Saline) 1,000 mls @ 250 mls/hr IV .BOLUS ONE Stop: 05/31/18 13:33 Last Admin: 05/31/18 09:46 Dose: 250 mls/hr Magnesium Sulfate 2 gm/ Premix 50 mls @ 25 mls/hr IV ONETIME ONE Stop: 05/31/18 12:12 Last Admin: 05/31/18 10:38 Dose: 25 mls/hr Levofloxacin/Dextrose 500 mg/ (Premix) 100 mls @ 100 mls/hr IV ONETIME ONE Stop: 05/31/18 12:58 Last Admin: 05/31/18 12:21 Dose: 100 mls/hr Magnesium Sulfate 2 gm/ Premix 50 mls @ 25 mls/hr IV ONETIME ONE Stop: 05/31/18 15:59 Last Admin: 05/31/18 14:09 Dose: 25 mls/hr Ondansetron HCl (Zofran) 4 mg IV ONETIME ONE Stop: 05/31/18 09:35 Last Admin: 05/31/18 09:46 Dose: 4 mg Ondansetron HCl (Zofran) 4 mg IV ONETIME ONE Stop: 05/31/18 12:13 Last Admin: 05/31/18 12:21 Dose: 4 mg - Exam General: Reports: Alert, Oriented HEENT: Reports: Pupils Equal, Pupils Reactive, EOMI, Mucous Membr. Moist/[place] Neck: Reports: Supple Lungs: Reports: Clear to Auscultation, Normal Respiratory Effort Cardiovascular: Reports: Regular Rate, Regular Rhythm GI/Abdominal Exam: Normal Bowel Sounds, Soft, Non-Tender, No Organomegaly, No Distention, No Abnormal Bruit, No Mass, Pelvis Stable (Female) Exam: Normal External Exam, Normal Speculum Exam, Normal Bimanual Exam Rectal (Female) Exam: Normal Exam, Normal Rectal Tone Back Exam: Reports: Normal Inspection, Full Range of Motion Extremities: Normal Inspection, Normal Range of Motion, Non-Tender, No Pedal Edema, Normal Capillary Refill Skin: Reports: Warm, Dry, Intact Wound/Incisions: Reports: Healing Well Neurological: Reports: No New Focal Deficit Psy/Mental Status: Reports: Alert, Normal Affect, Normal Mood
[2018-06-01 11:43] VITALS: BP 117/44
== END 2018-06-01 12:50 | disposition home or self-care (01) ==
LOC: DL.ED 08:31 → DL.MS 12:50 → UNDOADMOB 12:50 → DL.MS 13:06
PROVIDERS: ADMIT Student in an Organized Health Care Education/Training Program; ATTEND Student in an Organized Health Care Education/Training Program
DX: E86.0 Dehydration (principal); K52.9 Noninfective gastroenteritis and colitis, unspecified; N39.0 Urinary tract infection, site not specified; B96.89 Other specified bacterial agents as the cause of diseases classified elsewhere; E83.42 Hypomagnesemia; I10 Essential (primary) hypertension; E11.9 Type 2 diabetes mellitus without complications; G89.29 Other chronic pain; M54.5 Low back pain; E66.9 Obesity, unspecified; Z68.35 Body mass index [BMI] 35.0-35.9, adult; Z88.5 Allergy status to narcotic agent; Z88.8 Allergy status to other drugs, medicaments and biological substances; Z79.82 Long term (current) use of aspirin; Z79.84 Long term (current) use of oral hypoglycemic drugs; Z79.899 Other long term (current) drug therapy
CPT/HCPCS: 36415; 74176; 80048; 80053; 81001; 82009; 82150; 82962; 83605; 83690; 83735; 84484; 85025; 87040; 87045; 87046; 87086; 87088; 87186; 87493; 87899; 93005; 96361; 96365; 96366; 96367; 96372; 96375; 96376; 97161; 97165; 99285; A9270; G0378; J0696; J1170; J1644; J1815; J1956; J2405; J3475; J7030; J7050